=== PATIENT | female | born 2000 | race Native Hawaiian/Other Pacific Islander ===

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

== ENCOUNTER 2021-04-04 12:25 | Inpatient (IN) | payer MEDICAID ==
[2021-04-04] MEDS ORDERED: OXYTOCIN DRIP 30,000 MILLIUNITS/500 ML BAG IV ONE (13:31)
[2021-04-04] MEDS ORDERED: LACTATED RINGERS 1,000 ML ONE (13:31)
[2021-04-04] MEDS ORDERED: AMPICILLIN/NS 2 GM/100 ML 2 GM/100 ML BAG IV ONE ×2 (13:32→14:00)
[2021-04-04] MEDS ORDERED: BUTORPHANOL 2 MG/1 ML INJ IV PRN ×3 (13:33→14:11)
[2021-04-04] MEDS ORDERED: MINERAL OIL 30 ML ORAL LIQD PO PRN (13:33)
[2021-04-04] MEDS ORDERED: LOPERAMIDE 2 MG CAP PO PRN (13:33)
[2021-04-04] MEDS ORDERED: fentaNYL 100 MCG/2 ML INJ IV PRN ×2 (13:33→14:11)
[2021-04-04] MEDS ORDERED: CARBOPROST TROMETHAMINE 250 MCG/1 ML INJ IM PRN (13:33)
[2021-04-04] MEDS ORDERED: ePHEDrine SULFATE 50 MG/1 ML INJ IV PRN (13:33)
[2021-04-04] MEDS ORDERED: miSOPROStol 200 MCG TAB PR PRN (13:33)
[2021-04-04] MEDS ORDERED: OXYTOCIN 10 UNIT/1 ML INJ IM PRN (13:33)
[2021-04-04] MEDS ORDERED: TERBUTALINE 1 MG/1 ML INJ SUB-Q PRN (13:33)
[2021-04-04] MEDS ORDERED: LACTATED RINGERS 1,000 ML IV SCH (13:45)
[2021-04-04] MEDS ORDERED: LIDOCAINE (2%) 20 MG/1 ML VIAL 20 ML MDV INFILTRATI ONE (14:00)
[2021-04-04] MEDS ORDERED: OXYTOCIN DRIP 30 UNITS/500 ML BAG IV SCH ×2 (14:00)
[2021-04-04 14:02] LABS: Hematocrit 30.5 % (30.3-42.9); Mean Corpuscular HGB Conc 33 % (30-34); Mean Corpuscular Volume 75 fl (79-97); Platelet Count 403 K/mm3 (140-440); Red Blood Count 4.05 M/mm3 (3.65-5.03)
[2021-04-04] MEDS ORDERED: ACETAMINOPHEN 325 MG TAB PO PRN ×2 (14:11→15:17)
--- NOTE | 2021-04-04 14:23 | History and Physical Report ---
History of Present Illness Date of examination: 04/04/21 Chief complaint: active labor History of present illness: 20yo at 39+ 1/7 weeks in active labor. PNC at [facility]. no records available. Past History Past Surgical History: no surgical history Family/Genetic History: none Social history: no significant social history - Obstetrical History Expected Date of Delivery: 04/10/21 Actual Gestation: 39 Week(s) 1 Day(s) : 2 Para: 1 Medications and Allergies Allergies Allergy/AdvReac Type Severity Reaction Status Date / Time No Known Allergies Allergy Unverified 05/12/19 15:28 Home Medications Medication Instructions Recorded Confirmed Last Taken Type Nitrofurantoin [place]/M-Cryst 100 mg PO Q12HR 7 Days #14 capsule 05/12/19 10/13/19 Unknown Rx [Macrobid CAP] Nitrofurantoin [place] 100 mg PO QHS 30 Days #30 capsule 06/09/19 10/13/19 Unknown Rx [Nitrofurantoin] cephALEXin [Keflex] 500 mg PO Q6HR 7 Days #90 capsule 06/10/19 10/13/19 Unknown Rx Active Meds: Active Medications Acetaminophen (Acetaminophen 325 Mg Tab) 650 mg PO Q4H PRN PRN Reason: Pain, Mild (1-3) Butorphanol Tartrate (Butorphanol 2 Mg/1 Ml Inj) 2 mg IV Q2H PRN PRN Reason: Pain , Severe (7-10) Butorphanol Tartrate (Butorphanol 2 Mg/1 Ml Inj) 2 mg IV Q2H PRN PRN Reason: Pain, Moderate(4-6) LABOR PAIN Butorphanol Tartrate (Butorphanol 2 Mg/1 Ml Inj) 2 mg IV Q2H PRN PRN Reason: Pain , Severe (7-10) Carboprost Tromethamine (Carboprost Tromethamine 250 Mcg/1 Ml Inj) 250 mcg IM ONCE PRN PRN Reason: Uterine Bleeding Ephedrine Sulfate (Ephedrine Sulfate 50 Mg/1 Ml Inj) 10 mg IV Q2M PRN PRN Reason: Hypotension Fentanyl (Fentanyl 100 Mcg/2 Ml Inj) 100 mcg IV Q2H PRN PRN Reason: Pain,Severe (7-10) LABOR PAIN Fentanyl (Fentanyl 100 Mcg/2 Ml Inj) 100 mcg IV Q2H PRN PRN Reason: Pain,Severe (7-10) LABOR PAIN Oxytocin/Sodium Chloride (Pitocin/Ns 30 Unit/500ml) 30 units in 500 mls @ 2 mls/hr IV TITR DANIA; Protocol Lactated Ringer's (Lactated Ringers) 1,000 mls @ 125 mls/hr IV DIRECT DANIA Oxytocin/Sodium Chloride (Pitocin/Ns 30 Unit/500ml) 30 units in 500 mls @ 40 mls/hr IV TITR DANIA; Protocol Ampicillin Sodium (Ampicillin/Ns 2 Gm/100 Ml) 2 gm in 100 mls @ 100 mls/hr IV ONCE ONE; Protocol Stop: 04/04/21 14:59 Loperamide HCl (Loperamide 2 Mg Cap) 2 mg PO ONCE PRN PRN Reason: give with Hemabate Methylergonovine Maleate (Methylergonovine Maleate 0.2 Mg/Ml Vial) 0.2 mg IM ONCE PRN PRN Reason: Uterine Bleeding Mineral Oil (Mineral Oil 30 Ml Oral Liqd) 30 ml PO QHS PRN PRN Reason: Constipation Misoprostol (Misoprostol 200 Mcg Tab) 800 mcg MD ONCE PRN PRN Reason: Uterine Bleeding Oxytocin (Oxytocin 10 Unit/1 Ml Inj) 10 unit IM ONCE PRN PRN Reason: Uterine Bleeding Terbutaline Sulfate (Terbutaline 1 Mg/1 Ml Inj) 0.25 mg SUB-Q ONCE PRN PRN Reason: Hyperstimulation/Hypertonicity Review of Systems All systems: negative (contractions) - Vital Signs Vital signs: Vital Signs Pulse BP 85 125/69 04/04/21 12:56 04/04/21 12:56 Temp Pulse Resp BP Pulse Ox 98.3 F 97 H 18 136/63 99 04/04/21 13:35 04/04/21 13:35 04/04/21 13:35 04/04/21 13:35 04/04/21 14:05 - Physical Exam Breasts: Positive: deferred Cardiovascular: Regular rate Lungs: Positive: Clear to auscultation Abdomen: Positive: normal appearance, soft, normal bowel sounds Genitourinary (Female): Positive: normal perenium Vagina: Positive: normal moisture Uterus: Positive: enlarged Anus/Rectum: Positive: normal perianal skin Extremities: Positive: normal Deep Tendon Reflex Grade: Normal +2 - Obstetrical FHR: category 1 Cervical Dilatation: 8 Cervical Effacement Percentage: 80 station: 0 Uterine Contraction Frequency (min): 5 min Uterine Contraction Pattern: Regular Uterine Contraction Intensity: Moderate Results Result Diagrams: 04/04/21 13:20 Abnormal lab results 04/04/21 Range/Units 13:20 WBC 12.9 H (4.5-11.0) K/mm3 Hgb 10.0 L (10.1-14.3) gm/dl MCV 75 L (79-97) fl MCH 25 L (28-32) pg RDW 16.0 H (13.2-15.2) % All other labs normal. Assessment and Plan active labor no records, gbs unknown plan for admission abx pain meds prn cfm expect ella Weston MD
[2021-04-04] MEDS: METHYLERGONOVINE MALEATE 0.2 MG/ML VIAL IM PRN ×2 (14:45→15:25)
[2021-04-04] MEDS ORDERED: MORPHINE 4 MG/1 ML INJ ONE (15:10)
[2021-04-04] MEDS ORDERED: MORPHINE 4 MG/1 ML INJ IM ONE (15:12)
[2021-04-04] MEDS ORDERED: LANOLIN/ZINC/DIMETHICONE (LANSINOH) 7 GM TP PRN (15:17)
[2021-04-04] MEDS ORDERED: HYDROcodone/ACETAMINOPHEN 5-325 MG TAB PO PRN (15:17)
[2021-04-04] MEDS ORDERED: PROMETHAZINE 25 MG RECT SUPP PR PRN (15:17)
[2021-04-04] MEDS ORDERED: PROMETHAZINE 25 MG TAB PO PRN (15:17)
[2021-04-04] MEDS ORDERED: MAGNESIUM HYDROXIDE (MOM) ORAL LIQD UDC PO PRN (15:17)
[2021-04-04] MEDS ORDERED: diphenhydrAMINE 25 MG CAP PO PRN (15:17)
[2021-04-04] MEDS ORDERED: ONDANSETRON 4 MG/2 ML INJ IV PRN (15:17)
[2021-04-04] MEDS ORDERED: WITCH HAZEL/ GLYCERIN PAD TP PRN (15:17)
--- NOTE | 2021-04-04 15:17 | Procedure Note ---
OB Delivery Note - Vaginal Delivery position: OA Intrapartum events: hemorrhage Delivery induction: none Delivery augmentation: pitocin Delivery monitor: external FHT, external uterine Route of delivery: Delivery placenta: spontaneous Delivery cord: 3 umbilical vessels Episiotomy: none Delivery laceration: none Delivery comments: Patient pushed to deliver a viable female over an intact perineum with weight 2840gms and 9/9. Position RONALD, no nuchal cord. Spontaneous cry at delivery. Delivery of the anterior shoulder atraumatic, remainder of delivery uncomplicated. Cord clamped cut and baby handed to waiting [facility] team. Spontaneous delivery of an intact placenta with three-vessel cord. Inspection of the perineum cervix and vagina revealed no lacerations. After delivery of the placenta patient was noted to have brisk bleeding. Intermittent uterine atony was noted which resolved with bimanual massage, Methergine 0.2 mg IM x2 doses at 800 mcg of Cytotec per rectum. I called for a second IV line and 2 units of PRBCs to be put on hold. We will order stat H&H and transfuse if necessary. hemorrhage had resolved at the completion of the procedure in its entirety. Firm fundus, EBL 800ml. All sponge needle and instrument counts correct x2. Mom and baby stable to . Florence Weston MD
[2021-04-04] MEDS ORDERED: SODIUM CHLORIDE 0.9% 500 ML 500 ML IV ONE (16:00)
[2021-04-04 16:17] LABS: Hematocrit 31.3 % (30.3-42.9); Hemoglobin 10.2 gm/dl (10.1-14.3)
[2021-04-04] MEDS: IBUPROFEN 600 MG TAB PO SCH (16:37)
[2021-04-04] MEDS ORDERED: METHYLERGONOVINE MALEATE 0.2 MG/ML VIAL IM ONE (17:00)
[2021-04-05] MEDS: IBUPROFEN 600 MG TAB PO SCH ×2 (06:00→23:00)
[2021-04-05 06:58] LABS: Hematocrit 26.8 % (30.3-42.9); Hemoglobin 8.6 gm/dl (10.1-14.3)
--- NOTE | 2021-04-05 10:45 | Progress Note ---
Assessment and Plan A: day 1 S/P . S/P hemorrhage. Anemia. Heart murmur (asymptomatic). P: Supplement with iron. Patient desires to have heart murmur evaluated as an outpatient after hospital discharge. Repeat CBC tomorrow AM. Subjective - Subjective Date of service: 04/05/21 Principal diagnosis: day 1 S/P Interval history: Patient denies dizziness, headache, chest pain, shortness of breath, fatigue, or palpitations. Patient reports small amount of lochia and denies large clots. Patient reports: appetite normal, voiding normally, pain well controlled, flatus, ambulating normally, no dizzy ambulation, no nauseated [place]: doing well, bottle feeding Objective - Vital Signs Latest vital signs: Vital Signs Temp Pulse Resp BP BP Pulse Ox Pulse Ox 04/05/21 08:37 97.9 F 75 18 105/63 99 04/05/21 00:30 98.8 F 71 18 114/78 04/04/21 20:59 98.0 F 92 H 18 121/70 99 04/04/21 20:45 98 04/04/21 17:25 98.6 F 86 20 125/77 98 98 04/04/21 16:47 79 100 04/04/21 16:42 81 100 04/04/21 16:37 78 100 04/04/21 16:32 80 100 04/04/21 16:27 77 100 04/04/21 16:22 80 100 04/04/21 16:17 82 100 04/04/21 16:13 77 100 04/04/21 16:08 83 100 04/04/21 16:06 80 137/62 04/04/21 16:03 84 100 04/04/21 15:58 80 100 04/04/21 15:53 77 100 04/04/21 15:51 87 138/63 04/04/21 15:48 81 100 04/04/21 15:43 89 100 04/04/21 15:38 88 100 04/04/21 15:36 85 139/66 04/04/21 15:33 91 H 100 04/04/21 15:28 85 99 04/04/21 15:23 81 100 04/04/21 15:21 86 132/60 04/04/21 15:18 90 100 04/04/21 15:11 108 H 132/61 04/04/21 15:07 117 H 97 04/04/21 15:06 93 H 131/63 04/04/21 15:02 103 H 100 04/04/21 14:57 87 99 04/04/21 14:52 82 99 04/04/21 14:47 90 100 04/04/21 14:42 79 100 04/04/21 14:37 94 H 100 04/04/21 14:32 78 100 04/04/21 14:27 96 H 100 04/04/21 14:22 92 H 99 04/04/21 14:05 99 04/04/21 13:35 98.3 F 97 H 18 136/63 04/04/21 13:33 97 H 136/63 04/04/21 12:57 98.5 F 85 16 125/69 04/04/21 12:56 85 125/69 Intake and Output 04/04/21 04/05/21 04/05/21 23:59 07:59 15:59 Intake Total 300 300 Output Total 600 Balance -300 300 Intake: Intake, Free Water 300 300 Output: Urine 600 Void 600 Other: Total, Output Amount 600 # Voids Void 1 1 - Exam Cardiovascular: Present: Regular rate, Other (mumur heard) Lungs: Present: Clear to auscultation Abdomen: Present: normal appearance, soft, normal bowel sounds. Absent: distention, tenderness, guarding, rigidity Uterus: Present: normal, firm, fundal height below umbilicus. Absent: bogginess, tenderness Extremities: Present: normal. Absent: tenderness, edema - Labs Labs: Abnormal lab results 04/04/21 04/04/21 04/05/21 Range/Units 13:20 13:20 06:03 WBC 12.9 H (4.5-11.0) K/mm3 Hgb 10.0 L 8.6 L (10.1-14.3) gm/dl Hct 26.8 L (30.3-42.9) % MCV 75 L (79-97) fl MCH 25 L (28-32) pg RDW 16.0 H (13.2-15.2) % Crossmatch See Detail
[2021-04-05] MEDS: FERROUS SULFATE 325 MG TAB PO SCH (23:00)
[2021-04-06 10:04] LABS: Basophils # (Auto) 0.1 K/mm3 (0.0-0.1); Basophils % (Auto) 0.7 % (0.0-1.8); Eosinophils # (Auto) 0.2 K/mm3 (0.0-0.4); Eosinophils % (Auto) 1.6 % (0.0-4.3); Hematocrit 26.8 % (30.3-42.9); Hemoglobin 8.6 gm/dl (10.1-14.3); Lymphocytes # (Auto) 2.8 K/mm3 (1.2-5.4); Lymphocytes % (Auto) 27.9 % (13.4-35.0); Mean Corpuscular HGB Conc 32 % (30-34); Mean Corpuscular Volume 76 fl (79-97); Monocytes # (Auto) 0.4 K/mm3 (0.0-0.8); Monocytes % (Auto) 4.2 % (0.0-7.3); Platelet Count 357 K/mm3 (140-440); Red Blood Count 3.54 M/mm3 (3.65-5.03); Red Cell Distribution Width 16.4 % (13.2-15.2)
--- NOTE | 2021-04-06 10:36 | Progress Note ---
Assessment and Plan A: S/P Asymptomatic anemia P: Continue routine pp care Fe prescribed Repeat H&H May d/c home tomm if stable Subjective - Subjective Date of service: 04/06/21 Principal diagnosis: day 1 S/P Patient reports: appetite normal, voiding normally, pain well controlled, ambulating normally [place]: doing well, bottle feeding Objective - Vital Signs Latest vital signs: Vital Signs Temp Pulse Resp BP BP Pulse Ox Pulse Ox 04/06/21 08:41 98.1 F 74 16 95/58 99 04/06/21 08:00 100 04/06/21 00:00 98.8 F 70 16 109/78 04/05/21 23:00 14 04/05/21 20:15 98 04/05/21 16:25 97.7 F 69 18 97/52 97 04/05/21 12:23 98.0 F 79 18 96/48 98 Intake and Output 04/05/21 04/06/21 04/06/21 22:59 06:59 14:59 Intake Total 300 120 Balance 300 120 Intake: Oral 120 Intake, Free Water 300 Other: Total, Intake Amount 120 # Voids Void 1 1 1 - Exam Breasts: Present: normal Abdomen: Present: normal appearance, soft, normal bowel sounds Vulva: both: normal Uterus: Present: normal, firm, fundal height below umbilicus Extremities: Present: normal - Labs Labs: Abnormal lab results 04/06/21 Range/Units 09:47 RBC 3.54 L (3.65-5.03) M/mm3 Hgb 8.6 L (10.1-14.3) gm/dl Hct 26.8 L (30.3-42.9) % MCV 76 L (79-97) fl MCH 24 L (28-32) pg RDW 16.4 H (13.2-15.2) %
[2021-04-06] MEDS: FERROUS SULFATE 325 MG TAB PO SCH ×2 (11:10→22:36)
[2021-04-07] MEDS: IBUPROFEN 600 MG TAB PO SCH ×2 (00:02→06:22)
--- NOTE | 2021-04-07 09:36 | Discharge Summary ---
Providers - Providers Date of Admission: 04/04/21 14:33 Date of discharge: 04/07/21 Attending physician: RICK LEWIS MD Primary care physician: HANNA CRUMP MD Hospitalization Reason for admission: active labor, IUP at term Delivery: Episiotomy: none Laceration: none Other procedures: none complications: other (PPH) Discharge diagnosis: IUP at term delivered baby: female Hospital course: Pt was admitted to [facility] in active labor. She had a with a PPH. Pt received Fe supplementation and was d/c'd home in stable cond. See H&P, delivery summary, and pp notes. Condition at discharge: Stable Disposition: HOME / SELF CARE / HOMELESS Plan - Discharge Medications Prescriptions: Ferrous Sulfate [Feosol 325 MG tab] 325 mg PO BID #120 tablet Ibuprofen [Motrin 600 MG tab] 600 mg PO Q6H PRN #30 tablet PRN Reason: Menstrual Cramps - Provider Discharge Summary Activity: routine, no sex for 6 weeks, no heavy lifting 4 weeks, no strenuous exercise Diet: routine Instructions: routine Additional instructions: [] Smoking cessation referral if applicable(refer to patient education folder for contact #) [] Refer to [facility]'s [facility] Booklet Call your doctor immediately for: * Fever > 100.5 * Heavy vaginal bleeding ( >1 pad per hour) * Severe persistent headache * Shortness of breath * Reddened, hot, painful area to leg or breast * Drainage or odor from incision. * Keep incision clean and dry at all times and follow doctor's instructions regarding bathing/showering - Follow up plan Follow up: HANNA CRUMP MD [Primary Care Provider] - 6 Weeks Forms: [facility] Discharge Summary, Discharge Signature Page
[2021-04-07] MEDS: FERROUS SULFATE 325 MG TAB PO SCH (10:13)
[2021-04-07 11:43] VITALS: BP 103/67
== END 2021-04-07 11:45 | disposition home or self-care (01) | DRG 774 ==
LOC: TRG 12:25 → APU 12:26 → LD 13:27 → TRG 14:11 → LD 14:33 → OB 17:17
PROVIDERS: ADMIT Obstetrics & Gynecology; ATTEND Obstetrics & Gynecology
PROC: 10E0XZZ Delivery of Products of Conception, External Approach (ICD-10-PCS; principal; 2021-04-04)
DX: O72.1 Other immediate postpartum hemorrhage (principal); O90.81 Anemia of the puerperium; Z3A.39 39 weeks gestation of pregnancy; D62 Acute posthemorrhagic anemia; Z20.822 Contact with and (suspected) exposure to COVID-19; Z37.0 Single live birth
CPT/HCPCS: 36415; 85014; 85018; 85025; 85027; 86592; 86706; 86707; 86762; 86850; 86900; 86901; 86920; 87806; 88307; G0378; J2210; J2270; J2590; U0003